=== PATIENT | male | born 1960 | race Caucasian/White ===

== ENCOUNTER → 2021-06-03 16:21 | Outpatient (CLI) | payer OTHER, SELFPAY | PROVIDERS: PCP Family Medicine; Visit Provider Internal Medicine Gastroenterology | DX: Z01.812 Encounter for preprocedural laboratory examination (principal); Z11.52 Encounter for screening for COVID-19; Z12.11 Encounter for screening for malignant neoplasm of colon | CPT/HCPCS: C9803; U0003; U0005 ==

== ENCOUNTER 2021-06-06 09:03 | Day surgery (SDC) | payer OTHER, SELFPAY ==
[2021-05-30 09:38] VITALS: BMI 27.3
[2021-06-06 09:23] VITALS: BP 124/76; PULSE 91; RESP 18; TEMP 37; O2SAT 96
--- NOTE | 2021-06-06 10:20 | HMH.ANESCL ---
[facility] Anesthesia Checklist - Patient Identification Patient Identification: Arm Band - Structural Data Admitted From: Home Planned Operative Procedure/s: colonoscopy Consent for Planned Operative Procedure(s) Verified: Yes Verified Documents: Surgical Consent, History and Physical - NPO Status Verified Time NPO: 00:00 - Additional verifications Anesthesia Reactions: No - Airway Assessment C-Spine Mobility Assessed: Yes (mp2) TMJ Mobility Assessed: Yes Dentition: Good Dentition - Neurological Assessment Level of Consciousness: Awake, Alert - Anesthesia Plan Anesthesia Risk discussed: Yes Anesthesia Plan: Verified ASA Class: I Anesthesia Type: MAC [facility] History I have reviewed the patient's past medical history: Yes Medical History: Denies:: Cancer, Diabetes Mellitus Type 1, Diabetes Mellitus Type 2, Internal Pacemaker, MRSA, Seizures *Have you ever received a pneumonia vaccine?: No *Have you received a flu vaccine this season?: No Anesthesia experience/problems:: nac Other Surgeries: Yes: Colonoscopy. No: Pacemaker Amputation: No Fractures: No - *Social History Last grade of school completed: Advanced degree Smoking Status: Never smoker Alcohol Intake: current Alcohol Intake Frequency:: a few times a week Substance Use Type: denies use *Occupational Status:: employed Housing: house Household Members: spouse *Travel in the last 8 weeks: None Family Hx:: No significant family history
[2021-06-06 10:23] VITALS: O2SAT 96
--- NOTE | 2021-06-06 10:36 | HMH.SCOPE ---
- Procedure: Date: 06/06/21 Patient Date of :: 1960 Procedure Performed:: Screening colonoscopy Indications:: History of polyps Performing Provider:: Fabian Taveras MD Referring Provider:: None Sedation:: Propofol Procedure:: After placing the patient in the left lateral decubitus position, the colonoscopy was gently inserted into the rectum and under direct visualization advanced to the cecum which was identified by transillumination in the right lower quadrant, identification of the ileocecal valve, appendiceal orifice, and cecal strap. Color, texture, mucosa, and anatomy of the colon were carefully examined with the scope. Findings:: Anal canal: normal Rectum: normal Sigmoid colon: normal without polyps or inflammatory changes Descending colon: normal without polyps or inflammatory changes Splenic flexure: normal Transverse colon: normal without polyps or inflammatory changes Hepatic flexure: normal Ascending colon: normal without polyps or inflammatory changes Cecum: normal Terminal ileum: not visualized Impression: Normal colonoscopy exam Recommendations:: Follow up examination in 5-10 years, sooner if clinically indicated Complications:: None Estimated blood obtained (mL): 0
[2021-06-06 10:38] VITALS: BP 120/73; PULSE 80; RESP 16; TEMP 36.6; O2SAT 95
[2021-06-06 10:48] VITALS: BP 108/76; PULSE 78; RESP 18; O2SAT 98
[2021-06-06 10:58] VITALS: BP 131/63; PULSE 78; RESP 18; O2SAT 98
[2021-06-06 11:18] VITALS: BP 144/80; PULSE 79; RESP 18; TEMP 36.6; O2SAT 99
== END 2021-06-06 11:18 | disposition home or self-care (01) ==
LOC: OUTP 09:04
PROVIDERS: PCP Family Medicine; Visit Provider Internal Medicine Gastroenterology
PROC: 0DJD8ZZ Inspection of Lower Intestinal Tract, Via Natural or Artificial Opening Endoscopic (ICD-10-PCS; CPT 45378; principal; 2021-06-06 09:30)
DX: Z12.11 Encounter for screening for malignant neoplasm of colon (principal); Z86.010 Personal history of colon polyps
CPT/HCPCS: 45378